=== PATIENT | male | born 1990 | race Caucasian/White ===

== ENCOUNTER 2020-05-06 04:13 | Emergency (ER) | payer SELFPAY ==
[~2020-05-06] VITALS: Ht 177.8 cm; Wt 82.0 kg
[2020-05-06 04:58] VITALS: BP 142/92
[2020-05-06] MEDS ORDERED: KETOROLAC 60MG/2ML VIAL IM ONE (05:00)
[2020-05-06] MEDS ORDERED: IBUP-2029 MT (06:01)
[2020-05-06] MEDS ORDERED: LIDO700A30 TP (06:01)
== END 2020-05-06 06:40 | disposition home or self-care (01) ==
LOC: ER 04:13
DX: S13.4XXA Sprain of ligaments of cervical spine, initial encounter (principal); V49.9XXA Car occupant (driver) (passenger) injured in unspecified traffic accident, initial encounter; Y93.89 Activity, other specified; Y92.89 Other specified places as the place of occurrence of the external cause; Y99.8 Other external cause status
CPT/HCPCS: 70450; 71045; 72125; 72128; 72131; 96372; 99285; J1885